=== PATIENT | female | born 1980 | race Caucasian/White ===

== ENCOUNTER 2016-10-16 09:10 | Emergency (ER) | payer SELFPAY ==
[2016-10-16] MEDS ORDERED: HYDROcodone/Acetaminophen 10/325 mg Tablet ONE (10:15)
--- NOTE | 2016-10-16 11:31 | CT ---
CT FACIAL BONES PERFORMED WITHOUT CONTRAST ENHANCEMENT: HISTORY: Fall with left eye swelling. FINDINGS: Visualized intracranial contents appear unremarkable. The nasal bone and zygomatic arches are intact. The sinuses are clear. Slightly hypoplastic-appear ing right maxillary sinus is a developmental variation. There is an S-shaped curvature to the nasal septum. There is no evidence of any orbital or maxillary fracture. The mandible is intact. The condyles are in normal position. IMPRESSION: No CT evidence of fracture of the facial bones. POS: [facility]
== END 2016-10-16 10:20 | disposition home or self-care (01) ==
LOC: MADERS 09:10
DX: F07.81 Postconcussional syndrome (principal); S00.03XA Contusion of scalp, initial encounter; T07 Unspecified multiple injuries; I10 Essential (primary) hypertension; F41.9 Anxiety disorder, unspecified; F17.210 Nicotine dependence, cigarettes, uncomplicated; W19.XXXA Unspecified fall, initial encounter
CPT/HCPCS: 70486

== ENCOUNTER 2017-05-18 14:24 | Emergency (ER) | payer SELFPAY ==
[2017-05-18] MEDS ORDERED: HYDROcodone/Acetaminophen 10/325 mg Tablet ONE (15:52)
[2017-05-18] MEDS ORDERED: Azithromycin 250 MG TAB ONE (15:52)
[2017-05-18] MEDS ORDERED: Ondansetron ODT 4 MG TAB ONE (15:52)
== END 2017-05-18 16:12 | disposition home or self-care (01) ==
LOC: MADERS 14:24
DX: H72.93 Unspecified perforation of tympanic membrane, bilateral (principal); I10 Essential (primary) hypertension; F41.9 Anxiety disorder, unspecified; F17.210 Nicotine dependence, cigarettes, uncomplicated
CPT/HCPCS: 99282; Q0162

== ENCOUNTER 2017-05-22 21:55 | Emergency (ER) | payer SELFPAY ==
[2017-05-22] MEDS ORDERED: Clindamycin 150 MG CAP ONE (22:47)
[2017-05-22] MEDS ORDERED: Oxymetazoline HCl 0.05% ( 15 ML ) ONE (22:47)
[2017-05-22] MEDS ORDERED: HYDROcodone/Acetaminophen 10/325 mg Tablet ONE (22:47)
== END 2017-05-22 22:55 | disposition home or self-care (01) ==
LOC: MADERS 21:55
DX: H72.92 Unspecified perforation of tympanic membrane, left ear (principal); I10 Essential (primary) hypertension; R56.9 Unspecified convulsions; F41.9 Anxiety disorder, unspecified; F17.210 Nicotine dependence, cigarettes, uncomplicated
CPT/HCPCS: 99282

== ENCOUNTER 2018-04-23 15:31 | Emergency (ER) | payer OTHER ==
[~2018-04-23 15:31] MED LIST: Donnatal Elixir 16.2 MG/5 ML UDCUP ONE
[2018-04-23] MEDS ORDERED: Donnatal Elixir 16.2 MG/5 ML UDCUP ONE (15:50)
[2018-04-23] MEDS ORDERED: Mag-Al Plus 1200 MG/1200 MG/120 MG/30 ML UDCUP ONE (15:51)
[2018-04-23] MEDS ORDERED: Lidocaine Viscous Sol 2% 15 ml UD Cup ONE (15:51)
[2018-04-23 16:12] LABS: #Basophils 0.1 thou/uL (0.0-0.2); #Eosinphils 0.1 thou/uL (0.0-0.7); #Lymphocytes 2.6 thou/uL (1.20-3.40); #Monocytes 0.5 thou/uL (0.11-0.59); #Neutrophils 4.1 thou/uL (1.40-6.50); %Basophils 1.4 % (0.0-1.0); %Eosinophils 1.9 % (0.0-10.0); %Lymphocytes 35.1 % (21.0-51.0); %Monocytes 6.5 % (0.0-10.0); %Neutrophils 55.1 % (42.0-75.0); Hemoglobin 15.5 g/dL (12.0-16.0); Mean Corpuscular HGB CONC 32.4 g/dL (32.0-36.0); Mean Corpuscular Hemoglobin 30.4 pg (27.0-31.0); Mean Corpuscular Volume 93.7 fL (78.0-98.0); Mean Platelet Volume 10.6 fL (7.4-10.4); Platelet Count 159 thou/uL (130-400); Red Blood Cell (RBC) Count 5.11 mill/uL (4.20-5.40); White Blood Cell (WBC) Count 7.4 thou/uL (4.8-10.8)
[2018-04-23 16:42] LABS: Anion Gap 15 mmol/L (10-20); BUN (Urea Nitrogen) 11 mg/dL (7.0-18.7); Calc. Creatinine Clearance 0 mL/min (70-130); Calcium 10.1 mg/dL (7.8-10.44); Carbon Dioxide 25 mmol/L (22-29); Chloride 105 mmol/L (98-107); Estimated GFR-MDRD 80; Glucose 122 mg/dL (70-105); Potassium 4.2 mmol/L (3.5-5.1); Sodium 141 mmol/L (136-145)
[2018-04-23] MEDS ORDERED: Morphine 4 MG/ML VIAL ONE (16:44)
[2018-04-23 16:46] LABS: CKMB 0.6 ng/mL (0-6.6); Troponin I Less than 0.010 ng/mL (< 0.028)
--- NOTE | 2018-04-23 16:57 | RAD ---
UPRIGHT PORTABLE CHEST 1 VIEW: HISTORY: A 37-year-old female with a history of chest pain. COMPARISON: 03/16/15. FINDINGS: Heart size is within normal limits. The lungs are clear. No pneumonia, edema, pleural effusion, or other acute process. POS: [facility]
== END 2018-04-23 17:30 | disposition home or self-care (01) ==
LOC: MADERS 15:31
DX: K21.9 Gastro-esophageal reflux disease without esophagitis (principal); I10 Essential (primary) hypertension; F41.9 Anxiety disorder, unspecified; F17.210 Nicotine dependence, cigarettes, uncomplicated
CPT/HCPCS: 71045; 80048; 82553; 83880; 84484; 85025; 85379; 93005; 94760; 96374; J2270